=== PATIENT | female | born 1960 | race Asian ===

== ENCOUNTER 2024-09-02 20:43 | Emergency (ER) | payer OTHER ==
[~2024-09-02] VITALS: Ht 144.8 cm; Wt 34.7 kg
[2024-09-02 20:47] VITALS: TEMP 99.4
[2024-09-02 23:10] LABS: EOSINOPHILS % (AUTO) 0.4 % (0-6); HEMATOCRIT 41.9 % (35.0-45.0); HEMOGLOBIN 14.2 g/dl (12.0-16.0); LYMPHOCYTES # (AUTO) 1.4 X10'3 (1.1-4.8); LYMPHOCYTES % (AUTO) 30.1 % (21-51); MEAN CORPUSCULAR HEMOGLOBIN 29.3 PG (27.0-31.0); MEAN CORPUSCULAR HGB CONC 33.9 g/dL (33.0-36.5); MEAN CORPUSCULAR VOLUME 86.3 FL (78-98); MEAN PLATELET VOLUME 8.2 FL (7.4-10.4); MONOCYTES # (AUTO) 0.7 X10'3 (0-0.9); MONOCYTES % (AUTO) 14.3 % (2-12); NEUTROPHILS # (AUTO) 2.6 X10'3 (1.8-7.7); NEUTROPHILS % (AUTO) 54.2 % (42-75); PLATELET COUNT 136 X10'3 (140-440); RED BLOOD COUNT 4.86 X10'6 (4.20-5.60); RED CELL DISTRIBUTION WIDTH 15.5 % (11.5-14.5); WHITE BLOOD COUNT 4.8 X10'3 (4.5-11.0)
[2024-09-02 23:23] LABS: ALBUMIN 3.5 G/DL (3.4-5.0); ANION GAP 12 (8-16); BLOOD UREA NITROGEN 14 MG/DL (7-18); BUN/CREATININE RATIO 13.6 (10.0-20.0); CALCIUM 9.2 MG/DL (8.5-10.1); CHLORIDE 99 MMOL/L (99-107); CREATININE 1.03 MG/DL (0.40-0.90); GLUCOSE 96 MG/DL (70-104); POTASSIUM 3.6 MMOL/L (3.5-5.1); SODIUM 135 MMOL/L (135-145); TOTAL CARBON DIOXIDE 23.7 MMOL/L (24-32); eCRCL 30 ML/MIN; eGFR 54 ML/MIN
[2024-09-02] MEDS ORDERED: DOXY-462 PO (23:29)
[2024-09-02] MEDS ORDERED: PRED10TA23 PO (23:31)
[2024-09-02 23:39] VITALS: BP 103/63; PULSE 69; RESP 16; O2SAT 98
[2024-09-02] MEDS: DOXYCYCLINE 100MG CAPSULE PO STA (23:45)
[2024-09-02] MEDS: predniSONE 5mg tablet PO ONE (23:45)
[2024-09-02 23:56] LABS: BILIRUBIN,URINE SMALL (Neg); CLARITY,URINE CLEAR (Clear); COLOR,URINE YELLOW (Yellow); GLUCOSE, URINE NEGATIVE (Neg); KETONES,URINE TRACE mg/dl (Neg); LEUKOCYTE ESTERASE ,URINE SMALL (Neg); NITRITES, URINE NEGATIVE (Neg); OCCULT BLOOD,URINE TRACE-INTACT (Neg); PH,URINE 5.5 (4.8-8.0); PROTEIN,URINE TRACE mg/dl (Neg); UROBILINOGEN,URINE 0.2 E.U/dL (0.2-1.0)
[2024-09-03 00:03] LABS: UA COLLECTION TYPE CLN CATCH MIDSTREAM
[2024-09-03 00:04] LABS: BACTERIA,URINE 2+ /HPF (Neg); SQUAMOUS EPITHELIAL CELL,UR FEW /LPF (FEW)
== END 2024-09-02 23:49 | disposition home or self-care (01) ==
LOC: ER 20:45
DX: I77.6 Arteritis, unspecified (principal); L03.113 Cellulitis of right upper limb; Z79.52 Long term (current) use of systemic steroids
CPT/HCPCS: 36415; 80048; 81001; 83605; 84145; 85025; 87040; 87088; 99283; J7512

== ENCOUNTER 2024-09-15 13:59 | Emergency (ER) | payer OTHER ==
[~2024-09-15] VITALS: Ht 152.4 cm; Wt 33.0 kg
[2024-09-15] MEDS ORDERED: PRED20TA PO (15:53)
[2024-09-15] MEDS ORDERED: ACYC-129 PO (15:53)
[2024-09-15] MEDS ORDERED: GABA300C PO (15:53)
[2024-09-15 16:39] VITALS: BP 116/79; PULSE 70; RESP 16; TEMP 98.6; O2SAT 98
== END 2024-09-15 16:41 | disposition home or self-care (01) ==
LOC: ER 14:00
DX: B02.9 Zoster without complications (principal)
CPT/HCPCS: 99283